=== PATIENT | male | born 1955 | race Caucasian/White ===

== ENCOUNTER 2016-10-31 21:11 | Emergency (ER) | payer BC ==
--- NOTE | 2016-10-31 21:35 | ERNOTE ---
ER Male HPI Date of Service: 10/31/16 Stated Complaint: KIDNEY STONE Time Seen by Provider: 10/31/16 21:34 Source: patient, family Immunizations: IMMUNIZATION HX Immunizations Up to Date Yes Allergies/Adverse Reactions: Allergies Penicillins Allergy (Severe, Verified 10/31/16 21:24) rash Home Medications: HOME MEDICATIONS Aspirin 325 mg PO DAILY 12/10/12 [Last Taken 12/13/12 21:00 325 MG] Atorvastatin Calcium [Lipitor] 10 mg PO DAILY 12/10/12 [Last Taken 12/13/12 21: 00 MG] Esomeprazole Magnesium [Nexium] 20 mg PO DAILY 12/10/12 [Last Taken 12/14/12 06: 00 20 MG] Metoprolol Tartrate [Lopressor] 50 mg PO DAILY 12/10/12 [Last Taken 12/13/12 21: 00 50 MG] Sulfamethoxazole/Trimethoprim [Bactrim Ds] 2 tab PO BID 12/14/12 [Last Taken 06:00] Tadalafil [Cialis] 20 mg PO PRN 12/14/12 [Last Taken Unknown] Acetaminophen [Tylenol] 650 mg PO QID PRN #0 12/16/12 [Last Taken Unknown] oxyCODONE HCL/ACETAMINOPHEN [Percocet 5 MG/325 MG] 2 tab PO Q4H PRN #20 tablet 12/16/12 [Last Taken Unknown] Naproxen [Naprosyn] 500 mg PO BID PRN #20 tablet 10/31/16 [Last Taken Unknown] Ondansetron [Zofran Odt] 4 mg PO Q8H PRN #10 tab.rapdis 10/31/16 [Last Taken Unknown] Tamsulosin HCl [Flomax] 0.4 mg PO DAILY@1800 #60 cap 10/31/16 [Last Taken Unknown] - History of Present Illness Narrative: 61 year old with that notes a one hour history of right lower back pain that is similar to when he had a kidney stone 20 years ago. The pain occurred at rest and radiates to the right testicle intermittently. Nothing increases or decreases the pain. Denies any previous testicular pain or swelling. No dysuria , fevers, or chills. Complaints of nausea but no vomiting. His father had an aneurysm, but is uncertain if it was in the abdomen or chest. NO medications were taken prior to coming to the ED. Date (Duration): 10/31/16 Timing: Present: constant Quality: Present: severe Onset Location: Present: other - right lower back Radiation: Present: scrotal Activities at Onset: Present: none Prior Abdominal Problems: Present: similar symptoms Modifying Factors - (Improves): Present: other - nothing Modifying Factors - (Worsens): Present: other - nothing Associated Symptoms: Present: nausea Prior Treatment: Present: treated by physician Review of Systems - Review of Systems Constitutional: Present: no symptoms reported EYE: Present: no symptoms reported ENT: Present: no symptoms reported Respiratory: Present: no symptoms reported Cardiology: Present: no symptoms reported Gastrointestinal/Abdominal: Present: nausea. Absent: vomiting Genitourinary: Present: no symptoms reported Musculoskeletal: Present: no symptoms reported Skin: Present: no symptoms reported Neurological: Present: no symptoms reported Endocrine: Present: no symptoms reported Hematologic/Lymphatic: Present: no symptoms reported Psych: Present: no symptoms reported - Patient's Past Medical History Patient History - Medical: GERD Patient History - Cardiac/Respiratory: Hypertension, Hyperlipidemia Patient History - Cancer: No Hx of Cancer Patient History - Surgical Procedures: Other Patient History - Other: None - Social History Living Situations: home Smoking Status: Never smoker - Immunizations Immunizations Up to Date: Yes Physical Exam - Physical Exam General Appearance: Present: mild distress Eye Exam: Normal inspection: bilateral Ears, Nose, Throat: Present: normal ENT inspection Neck: Present: normal inspection, nontender, supple Respiratory: Present: no respiratory distress Cardiovascular/Chest: Present: regular rate, rhythm Gastrointestinal/Abdominal: Present: nontender, nondistended Back Exam: Present: normal inspection, normal range of motion Extremity Exam: Present: normal inspection, non-tender, no edema Neurological Exam: Present: alert, oriented, normal mood/affect, medical accountant II-XII nml as tested Skin Exam: Present: normal color ED Progress - Results and Orders Patient's Lab Results:: I have reviewed the patient's lab results. - Vital Signs Patient's Vital Signs:: I have reviewed the patient's vital signs. Vital Signs: Vital Signs 10/31/16 21:18 Temperature 36.0 C L Pulse Rate 56 L Respiratory 16 Rate Blood Pressure 156/85 O2 Sat by Pulse 96 Oximetry - CT/Ultrasound CT/Ultrasound Narrative: 5 mm stone present at he left ureter. - Progress/Reassessment Chief Complaint: Genitourinary Problem Progress Note-Subjective: 10/31/16 22:51 Feeling better since getting the medication. Departure Clinical Impression: Ureterolithiasis - Departure Disposition: Home self-care Condition: Good Instructions: Kidney Stones, [id number] Print Language: Kyrgyz Referrals: Mac Feng MD [Primary Care Provider] - Prescriptions: Naproxen [Naprosyn] 500 mg PO BID PRN #20 tablet PRN Reason: Pain Ondansetron [Zofran Odt] 4 mg PO Q8H PRN #10 tab.rapdis PRN Reason: Nausea Tamsulosin HCl [Flomax] 0.4 mg PO DAILY@1800 #60 cap
[2016-10-31] MEDS ORDERED: KETOROLAC TROMETHAMINE 30 MG/ML VIAL IM ONE (21:39)
[2016-10-31] MEDS ORDERED: ONDANSETRON 4 MG TAB.RAPDIS PO ONE (21:39)
[2016-10-31] MEDS ORDERED: ACETAMINOPHEN 500 MG TABLET PO ONE (21:39)
[2016-10-31] MEDS ORDERED: KETOROLAC TROMETHAMINE 30 MG/ML VIAL ONE (21:43)
[2016-10-31] MEDS ORDERED: ONDANSETRON 4 MG TAB.RAPDIS ONE (21:43)
[2016-10-31] MEDS ORDERED: ACETAMINOPHEN 325 MG TABLET ONE (21:44)
[2016-10-31 21:51] LABS: Hemoglobin 15.8 gm/dL (13.5-18.0); Mean Cell Volume 86.8 fl (78-100); Mean Corpuscular Hemoglobin 29.8 pg (27-31); Mean Corpuscular Hgb Conc 34.3 g/dl (32-36); Mean Platelet Volume 10.3 fl (6.0-9.5); Neutrophil % 68.9 % (42-75.0); Platelet Count 234 K/mm3 (150-450); Red Cell Distribution Width 12.5 % (11.5-14.0); White Blood Count 10.2 K/mm3 (4.0-10.5)
[2016-10-31 21:58] LABS: Anion Gap 15.4 mmol/L (6.8-13.8); BUN/Creatinine Ratio 18.5 (9.0-21.6); Calcium * 8.7 mg/dL (7.9-10.9); Carbon Dioxide 24.3 mmol/L (24-32.6); Estimated Creat Clear 72.3; Potassium 3.7 mmol/L (3.4-4.6)
[2016-10-31 22:16] LABS: Urine Bilirubin Negative (NEGATIVE); Urine Blood 250 /ul (NEGATIVE); Urine Ketone Negative (NEGATIVE); Urine Nitrite Negative (NEGATIVE); Urine Protein 15 mg/dL (NEGATIVE); Urine Specific Gravity >=1.030 SP.GR. (1.005-1.030); Urine Urobilinogen Normal (NORMAL); Urine pH 5.5 pH (5.0-7.0)
[2016-10-31 22:34] LABS: Urine Appearance Clear; Urine Bacteria TRACE; Urine Color Dark Yellow; Urine WBC None Seen /hpf (0-5)
[2016-10-31 22:35] LABS: Urine Mucus Few - 1+
[2016-10-31 23:13] VITALS: BP 151/90
== END 2016-10-31 23:10 | disposition home or self-care (01) ==
LOC: ER 21:11
DX: N20.1 Calculus of ureter (principal)